=== PATIENT | male | born 1975 | race Caucasian/White ===

== ENCOUNTER 2019-06-14 20:19 | Observation (INO) ==
[2019-06-14 20:45] LABS: BASO# 0.06 X1000 (0.0-0.2); BASO% 0.6 % (0.0-0.8); EOS# 0.28 X1000 (0.0-0.7); EOS% 2.7 % (0.0-10.0); HEMATOCRIT 46.7 % (42.0-52.0); HEMOGLOBIN 15.5 g/dL (14.0-18.0); IMM GRAN# 0.04 X1000 (0.0-0.04); IMM GRAN% 0.4 % (0.0-0.5); LYMPH# 1.79 X1000 (1.2-3.4); LYMPH% 17.5 % (20.5-51.1); MCH 29.8 PG (27-31); MCHC 33.2 g/dL (33-37); MCV 89.6 FL (81-99); MONO# 1.57 X1000 (0.11-0.59); MONO% 15.4 % (1.7-9.3); NEUT# 6.46 X1000 (1.4-6.5); NEUT% 63.4 % (42.2-75.2); PLT 282 X1000 (130-400); RBC 5.21 XMIL (4.7-6.1); RDW 14.7 % (11.5-14.5)
[2019-06-14 21:07] LABS: AGAP 14; BUN 16 mg/dL (8-22); CALCIUM 9.4 mg/dL (8.8-10.2); CHLORIDE 98 mmol/L (98-107); COSMO 274; ESTIMATED GFR > 60; GLUCOSE 87 mg/dL (70-104); POTASSIUM 3.6 mmol/L (3.5-5.1); SODIUM 137 mmol/L (136-145); TCO2 25 mmol/L (25-35)
[2019-06-14 21:08] LABS: URINE SOURCE CLEAN CATCH
[2019-06-14 21:15] LABS: BILIRUBIN URINE NEGATIVE (NEGATIVE); BLOOD URINE NEGATIVE (NEGATIVE); COLOR YELLOW; GLUCOSE URINE NEGATIVE (NEGATIVE); KETONE URINE TRACE mg/dL (NEGATIVE); LEUKOCYTES URINE NEGATIVE (NEGATIVE); NITRITE URINE NEGATIVE (NEGATIVE); PH URINE 6.5; PROTEIN URINE TRACE mg/dL (NEGATIVE); TURBIDITY URINE CLEAR (CLEAR); UROBILINOGEN URINE 3 mg/dL (NORMAL)
[2019-06-14 21:16] LABS: UR EPITHELIAL CELLS <10 /HPF (<10); URINE BACTERIA NEGATIVE /HPF; URINE RBC <10 /HPF (<10); URINE WBC <10 /HPF (<10)
--- NOTE | 2019-06-14 21:16 | Diag Imaging Result Doc PS360 ---
EXAM: CHEST-PORTABLE HISTORY: CP TECHNIQUE: Single view COMPARISON: 04/11/2018 FINDINGS: The lungs are well expanded. The heart is not enlarged. The vessels are not distended. There are no infiltrates. No effusion identified. IMPRESSION: Negative exam. Electronically signed by Justyn Quach 06/14/2019 9:13 PM
--- NOTE | 2019-06-14 21:52 | EKG Report ---
Test Performed on : 06/14/2019 8:24:21 PM Test Reason : CP Blood Pressure : / mmHG Vent. Rate : 102 BPM Atrial Rate : 102 BPM P-R Int : 134 ms QRS Dur : 136 ms QT Int : 368 ms P-R-T Axes : 054 -71 066 degrees QTc Int : 479 ms Sinus tachycardia. Possible Left atrial enlargement Right bundle branch block Left anterior fascicular block Bifascicular block Left ventricular hypertrophy with repolarization abnormality Cannot rule out Septal infarct , age undetermined Abnormal ECG When compared with ECG of 11-APR-2018 19:32, Minimal criteria for Septal infarct are now present Unconfirmed Result
--- NOTE | 2019-06-14 22:20 | PROVIDER DOCUMENTATION ---
This chart was entered by Liv Mckeon Scribe, acting as scribe for Manfred Saeed MD. HPI-Chest Pain - General Chief Complaint: Chest Pain Stated Complaint: chest pain Time Seen by Provider: 06/14/19 20:27 Source: patient, EMS ([employer]) Allergies/Adverse Reactions: Patient Allergies Allergy/AdvReac Type Severity Reaction Status Date / Time No Known Allergies Allergy Verified 06/14/19 20:32 Home Medications: Home Medication List Medication Instructions Recorded Confirmed Last Taken Type Lisinopril 2 mg PO DAILY 06/14/19 06/14/19 Unknown History - History of Present Illness-CP Nature of Presenting Problem: Pt is a 43 yowm brought into the ED by [employer] with c/o of chest pain. Pt re ports that he went to [facility] this morning and the physician advised him to go by EMS to ED then but pt refused. Pt states that the chest pain increased as the day went on and this evening he decided to come to ED. EMS reports giving pt 324 mg of aspirin enroute to ED but no nitro. Pt states that he was given a HTN dx by Dr. Hidalgo earlier in 2019 but due to Covid19 has not had a cardiac workup. Pt was prescribed Lisonipril 20mg and has been taking it as directed. Pt says that he experienced slight nausea but no vomiting, was slightly diaphoretic and SOB. Pt says that the pain is intermittent and at it's worst pain was a 6 out of 10. Pt reports smoking a pack of cigarettes a day. Pt is A&O x3 and nontoxic in appearance. Location: reports: central Chest Pain Radiation: reports: no radiation Quality of Pain: reports: pressure, sharp Severity in ED: moderate Onset/Duration: abrupt, 3 days ago Timing: still present, getting worse Context/Activities at Onset: reports: light activity. denies: out of country travel Modifying Factors: worse with: exercise Associated Symptoms: reports: diaphoresis, nausea, shortness of breath. denies: abdominal pain, dizziness, fever/chills, syncope, vomiting Nitro Today/Relief: no nitro taken today Aspirin Treatment Today: 325 mg x 1, provided by EMS Prior Chest Pain/Cardiac Workup: reports: no prior cardiac workup Similar Symptoms Previously?: Yes (pt reports that he has had very slight chest pain in past but not like this) Recently Seen Here or By Another Healthcare Provider: Yes ([facility]) Review of Systems - Adult - REVIEW OF SYSTEMS - ADULT Constitutional: denies: chills, fever Eyes: reports: no symptoms reported Ears, Nose, Mouth & Throat: reports: no symptoms reported Cardiovascular: reports: see HPI, chest pain, other (longstanding untreated htn, smoker). denies: edema, heart murmur, syncope Respiratory: reports: see HPI, shortness of breath. denies: cough Gastrointestinal: reports: see HPI, nausea. denies: vomiting Genitourinary: reports: no symptoms reported Musculoskeletal: reports: no symptoms reported Integumentary: reports: no symptoms reported Neurological: reports: no symptoms reported Psychiatric: reports: no symptoms reported Endocrine: reports: see HPI, excessive sweating Hematologic/Lymphatic: reports: no symptoms reported Allergic/Immunologic: reports: no symptoms reported All Other Systems: Reviewed and Negative Past History - Adult - PAST MEDICAL HISTORY-ADULT Review of Records: reports: Nursing Assessment Review, Medications Reviewed, Social history reviewed & non-contributory. Major Childhood Illnesses: reports: denies history Cardiovascular: reports: HTN Respiratory: reports: asthma, COPD Gastrointestinal: reports: denies history Genitourinary: reports: denies history Musculoskeletal: reports: denies history Neurological: reports: denies history Endocrine/Immune: reports: denies history Other Conditions: reports: denies history - IMMUNIZATION STATUS Childhood Immunizations: See Nurse Assessment Flu Vaccine: See Nurse Assessment - FAMILY HISTORY Family History: reviewed, not pertinent - SOCIAL HISTORY Smoking: cigarettes, less than 1 pack/day Provider spent 3-5 mins advising pt. on dangers of tobacco.: Discussed manners to quit use, and f/u contacts for add'l counseling. Substance Use: denies Living Situation: family Physical Exam-General - PHYSICAL EXAM-ADULT Initial Vital Signs Reviewed: Yes (HR 103) - CONSTITUTIONAL General Appearance: appears well, alert, mild distress, thin - EYES Eyes: PERRL/EOMI, pink conjunctivae - HEAD, EARS, NOSE, MOUTH & THROAT HENMT: normocephalic/atraumatic, moist mucous membranes - NECK Neck: non-tender, full range of motion, supple, normal inspection - RESPIRATORY Respiratory: chest non-tender, lungs clear, normal breath sounds, no respiratory distress - CARDIOVASCULAR Cardiovascular: normal peripheral pulses, no edema, no JVD, no murmur, tachycardia - GASTROINTESTINAL (ABDOMEN) Abdominal Exam: non tender, soft - LYMPHATIC Lymphatic: no adenopathy - MUSCULOSKELETAL Extremity: normal range of motion, non-tender, no pedal edema, no calf tenderness, normal capillary refill - SKIN Integumentary: normal color, normal turgor, warm/dry - NEUROLOGIC Neurologic: flask handler II-XII nml as tested, grossly normal, no motor/sensory deficits - PSYCHIATRIC Psych/Mental Status: normal mood/affect, normal thought content, normal thought process, oriented x 3 - HEART Score HEART Score: History: Highly Suspicious HEART Score: ECG: Non-Specific Repolarization Disturbance/LBBB/PM HEART Score: Age: < or = 45 Years HEART Score: Risk Factors for Atherosclerotic Disease: 1 or 2 Risk Factors HEART Score: Troponin: < or = Normal Limit Total HEART Score:: 4 Progress - PLAN OF CARE/RESULTS Progress/Plan/Lab Results: Vital Signs - 8 hr 06/14/19 20:19 06/14/19 20:47 06/14/19 22:13 Temperature 98.9 F Pulse Rate 103 H 102 H 97 H Respiratory Rate 20 18 20 Blood Pressure 147/82 114/83 134/89 O2 Sat by Pulse Oximetry 98 96 96 Laboratory Results - last 24 hr 06/14/19 06/14/19 06/14/19 20:23 20:23 20:23 WBC RBC Hgb Hct MCV MCH MCHC RDW Std Deviation Plt Count MPV Immature Gran % (Auto) Neut % (Auto) Lymph % (Auto) Howell % (Auto) Eos % (Auto) Baso % (Auto) Immature Gran # (Auto) Neut # (Auto) Lymph # (Auto) Howell # (Auto) Eos # (Auto) Baso # (Auto) Sodium 137 Potassium 3.6 Chloride 98 Carbon Dioxide 25 Anion Gap 14 BUN 16 Creatinine 1.0 Estimated GFR/1.73 m2 > 60 BUN/Creatinine Ratio 16 Glucose 87 Calculated Osmolality 274 Calcium 9.4 Magnesium 2.3 Troponin T High Sens Free T4 1.11 Urine Source Urine Color Urine Turbidity Urine pH Ur Specific Wiley Urine Protein Ur Glucose (Stick) Ur Ketones (Stick) Urine Blood Urine Nitrite Urine Bilirubin Urobilinogen Dipstick Urine Leukocytes Urine WBC (Auto) Urine RBC (Auto) U Epithel Cells (Auto) Urine Bacteria (Auto) 06/14/19 06/14/19 06/14/19 20:23 20:23 20:56 WBC 10.20 RBC 5.21 Hgb 15.5 Hct 46.7 MCV 89.6 MCH 29.8 MCHC 33.2 RDW Std Deviation 14.7 H Plt Count 282 MPV 9.0 Immature Gran % (Auto) 0.4 Neut % (Auto) 63.4 Lymph % (Auto) 17.5 L Howell % (Auto) 15.4 H Eos % (Auto) 2.7 Baso % (Auto) 0.6 Immature Gran # (Auto) 0.04 Neut # (Auto) 6.46 Lymph # (Auto) 1.79 Howell # (Auto) 1.57 H Eos # (Auto) 0.28 Baso # (Auto) 0.06 Sodium Potassium Chloride Carbon Dioxide Anion Gap BUN Creatinine Estimated GFR/1.73 m2 BUN/Creatinine Ratio Glucose Calculated Osmolality Calcium Magnesium Troponin T High Sens 11 Free T4 Urine Source CLEAN CATCH Urine Color YELLOW Urine Turbidity CLEAR Urine pH 6.5 Ur Specific Wiley 1.030 Urine Protein TRACE A Ur Glucose (Stick) NEGATIVE Ur Ketones (Stick) TRACE A Urine Blood NEGATIVE Urine Nitrite NEGATIVE Urine Bilirubin NEGATIVE Urobilinogen Dipstick 3 A Urine Leukocytes NEGATIVE Urine WBC (Auto) <10 Urine RBC (Auto) <10 U Epithel Cells (Auto) <10 Urine Bacteria (Auto) NEGATIVE Orders Category Date Time Status Cardiac Monitoring DIRECTED Care 06/14/19 20:28 Active Saline Loc NOW Care 06/14/19 20:28 Active CHEST-PORTABLE [RAD] Stat Exams 06/14/19 20:29 Completed BASIC METABOLIC PANEL [CHEM] Stat Lab 06/14/19 20:23 Completed CBC WITH ELECTRONIC DIFF [HEME] Stat Lab 06/14/19 20:23 Completed FREE T4 Stat Lab 06/14/19 20:23 Completed MAGNESIUM [CHEM] Stat Lab 06/14/19 20:23 Completed TROPONIN T HIGH SENSITIVITY Stat Lab 06/14/19 20:23 Completed URINALYSIS W/POSS RFLX CULT [URINALYSIS] Stat Lab 06/14/19 20:56 Completed EKG [EKG] Stat Ther 06/14/19 20:29 Draft Result Diagrams: 06/14/19 20:23 06/14/19 20:23 - EKG 1 Time of EKG reading by physician:: 20:16 EKG Read and Signed by:: Manfred Saeed (EMS EKG ) Rate: 100 Rhythm: Sinus tachycardia QRS: RBB (with left anterior fascicular block), LVH 2 Time of EKG reading by physician:: 20:25 EKG Read and Signed by:: Manfred Saeed EKG Interpretation (*Must complete 3 of following elements*): Abnormal Rate: 102 Rhythm: Sinus tachycardia QRS: RBB, LVH (with polarized abnormality) Comments: Possible left atrial enlargement, bifascicular block - XRAY 1 XRAY Study: Chest Impression: See EMR Report ([facility] - [address], [address], [place] [address] [facility] - [address] [place] [address] Department of Imaging Patient: DYLON PRICE Date: 06/14/19MR#: [id number] : 1975[id number] Age/Sex: 43/MRoom/Bed: Loc: P.ED Ordering Physician: Manfred Saeed MD Family Physician: None,PCP Reason for Procedure: CP Signed EXAM: CHEST-PORTABLE HISTORY: CP TECHNIQUE: Single view COMPARISON: 04/11/2018 FINDINGS: The lungs are well expanded. The heart is not enlarged. The vessels are not distended. There are no infiltrates. No effusion identified. IMPRESSION: Negative exam. Electronically signed by Justyn Quach 06/14/2019 9:13 PM 06/14/192112 Interpreting Physician: Justyn Quach MD Dictated Date/Time: 06/14/192112 cc: Manfred Saeed MD; None,PCP) - CONSULTS/PCP/HOSPITALIST Notification #1 *Consult/PCP/Hospitalist*: Dr. Montiel Time Discussed: 22:02 Consult Disposition: Admit Departure - Departure Date of Disposition Decision: 06/14/19 Time of Disposition Decision: 22:05 DIAGNOSIS: Right bundle branch block, LVH (left ventricular hypertrophy) Chest pain Qualifiers: Chest pain type: unspecified Qualified Code(s): R07.9 - Chest pain, unspecified Disposition: ADMITTED INPATIENT 09 Certified Medical Emergency: Emergent Condition: Stable Referrals and Follow-Ups: None,PCP [Primary Care Provider] - - Critical Care Note This patient required my direct & personal management of CC.: No Attestation - Physician/ TAVARES Attestation Patient care was provided by Advanced Practice Provider:: No The physician spent face to face time with patient:: Yes Advanced Practice Provider documentation review:: Supervising physician onsite and consulted in the evaluation and care of this patient. The physician did have a face to face encounter with the patient. This chart was documented by the indicated scribe, (Liv Mckeon, Scribe) and accurately reflects the services I performed and decisions made by me, Manfred Saeed MD, as attested by the provider's signature.
[2019-06-14] MEDS ORDERED: NICODERM PATCH TD ONE (22:24)
[2019-06-14] MEDS ORDERED: BENADRYL IV ONE (22:25)
[2019-06-15] MEDS ORDERED: MORPHINE IV PRN (00:18)
[2019-06-15] MEDS ORDERED: TORADOL IV PRN (00:18)
[2019-06-15] MEDS ORDERED: ZOFRAN IV PRN (00:18)
[2019-06-15 11:39] VITALS: BP 124/79
--- NOTE | 2019-06-15 15:40 | Diag Imaging Result Document ---
PROCEDURE NAME: MYOCARDIAL PERF SCAN, STR/REST - 06/15/2019 REFERRING PHYSICIAN: PROCEDURE: Exercise stress test. SUMMARY: 1. The patient exercised on the Alex protocol. 2. The patient exercised for 10 minutes and 0 seconds. 3. Peak heart rate 164 beats per minute,92% predicted maximal heart rate achieved. There was no chest pain. 4. Baseline electrocardiogram revealed right bundle branch block. 5. Stress electrocardiogram was negative for ischemia. Hypertensive blood pressure response to exercise. Initial blood pressure was 138/80; target heart rate,blood pressure was 172/90 at rest; post exercise blood pressure 156/112. 6. There were no dysrhythmias noted. Exercise was stopped because of shortness of breath. 7. At target heart rate, Cardiolite was injected. Total of 10.8 mCi of Cardiolite was injected for the rest phase; 32 mCi of Cardiolite was injected for the stress phase. 8. Gated SPECT images were obtained in standard views. 9. Images revealed normal left ventricular cavity size. There is significant diaphragmatic and chest wall attenuation. There is a low-grade, fixed defect in the inferior wall with normal wall motion. This could represent attenuation defect. 10. There is no definite evidence of ischemia. There is low-grade, fixed defect in the inferoseptal region as well. This could again represent attenuation defect. CONCLUSIONS: 1. No chest pain. 2. Negative exercise stress electrocardiogram. 3. There were no dysrhythmias noted. 4. Hypertensive response to exercise. 5. Myocardial perfusion images revealed normal left ventricular cavity size. There is no definite evidence of ischemia. 6. There is low-grade, fixed defect, moderate size in the inferior wall and in the inferoseptal wall with normal wall motion. This could represent scar versus attenuation defect. There is significant chest wall and diaphragmatic attenuation. 7. Left ventricular ejection fraction by gated SPECT was 64%. cc: MD Gerardo Castro MD
--- NOTE | 2019-06-16 02:26 | HISTORY AND PHYSICAL ---
CHIEF COMPLAINT: Chest pain. HISTORY OF PRESENT ILLNESS: Patient is a 43-year-old male who presented to the emergency department complaining of chest pain, chest pressure. States he had gone to [facility] this morning and was told to come to the ER, however, did not. The patient does note the pain continued and therefore did come this afternoon. Was given aspirin en route to the ER but no nitroglycerin. States he was told that he has hypertension, was told by Dr. Hidalgo earlier that he needed a full cardiac workup, but this has not been completed secondary to COVID-19 and the difficulty in getting the workup performed. The patient does notes he has had some slight nausea. No real vomiting. Has felt slightly diaphoretic. Denies headaches, blurred vision. ALLERGIES: No known drug allergies. MEDICATIONS: Lisinopril. REVIEW OF SYSTEMS: As noted above. Patient states the pain at its worst has been 6/10 although it is better now. Denies true fevers, chills, vomiting, syncope, headaches, blurred vision, change in vision. Denies focalized weakness. Denies dysuria, urinary frequency, constipation, melena, hematochezia. Denies any dizziness. PAST MEDICAL HISTORY: Significant for hypertension, COPD. SOCIAL HISTORY: Continues to smoke a pack a day. Denies fevers. Denies drug use. Does drink occasionally. FAMILY HISTORY: Positive for coronary disease. PHYSICAL EXAMINATION: VITAL SIGNS: Temperature 98 degrees, pulse 103, respiratory 20, BP 147/82, saturating 98% on room air. GENERAL: Patient is awake, pleasant. No distress. HEENT: Normocephalic. NECK: Supple. CARDIOVASCULAR: Regular rate. CHEST: Clear. ABDOMEN: Soft, nondistended. EXTREMITIES: Moves all extremities. NEUROLOGIC: No changes. ASSESSMENT: 1. Chest pain. 2. Hypertension. 3. Chronic tobacco abuse. PLAN: We are going to admit to the hospital, rule out NC. If his enzymes are negative, we will check a stress test and we will follow. cc: Gerardo Vann MD
--- NOTE | 2019-06-16 05:34 | DISCHARGE SUMMARY ---
ADMISSION DATE: 06/14/2019 DISCHARGE DATE: 06/15/2019 DISCHARGE DIAGNOSES: 1. Chest pain, resolved. 2. Hypertension, stable. 3. Chronic tobacco abuse. CONSULTATIONS: None. PROCEDURES: None. BRIEF HOSPITAL COURSE: Patient was admitted to the hospital secondary to chest pain, palpitations, LVH on first EKG. It is noted the patient continues to smoke. Does have a history of blood pressure. Discussed with patient the importance of stopping smoking and controlling blood pressure. The patient was admitted to the hospital, ruled out for CA. Did have a stress test that was normal and therefore will be discharged home. The patient has not had an echo and this was unable to be performed while he was in the hospital and certainly can be done as an outpatient. DISPOSITION: Discussed with patient the perils of smoking as well as reasons to stop. We will discharge him home to follow up outpatient with treatment facility of choice. We will continue his lisinopril for his blood pressure control. cc: Gerardo Vann MD
== END 2019-06-15 16:39 | disposition home or self-care (01) ==
LOC: P.ED 20:19 → P.MEDSURG 20:19
PROVIDERS: ATTEND Family Medicine